=== PATIENT | female | born 1995 | race Caucasian/White ===

== ENCOUNTER 2021-05-02 21:18 | Emergency (ER) | payer BC ==
[2021-05-03 08:24] LABS: HEMOGLOBIN 13.3 gm/dl (12.3-15.3); RED BLOOD COUNT 4.69 M/UL (4.00-5.10); WHITE BLOOD COUNT 10.4 K/UL (4.5-11.0)
[2021-05-03 08:47] LABS: BUN/CREATININE RATIO 18 (0-10)
== END 2021-05-03 11:00 | disposition home or self-care (01) ==
LOC: ER1 21:18
PROVIDERS: Physician Assistant Medical
DX: R55 Syncope and collapse (principal); Z88.5 Allergy status to narcotic agent; Z90.89 Acquired absence of other organs
CPT/HCPCS: 70450; 80053; 80307; 81001; 84439; 84443; 84484; 84703; 85025; 93005; 99285

== ENCOUNTER 2022-05-30 12:35 | Emergency (ER) | payer OTHER ==
[2022-05-30] MEDS ORDERED: ENDOCET 5-3251 EACH PO (15:32)
== END 2022-05-30 19:31 | disposition home or self-care (01) ==
LOC: ER1 12:35
DX: S22.089A Unspecified fracture of T11-T12 vertebra, initial encounter for closed fracture (principal); W19.XXXA Unspecified fall, initial encounter
CPT/HCPCS: 72131; 81001; 84703; 96372; 99284; J1885